=== PATIENT | male | born 1955 | race African-American/Black ===

== ENCOUNTER 2018-05-23 16:21 | Emergency (ER) | payer MEDICARE, MEDICAID ==
[~2018-05-23] VITALS: Ht 188 cm; Wt 79.4 kg
--- NOTE | 2018-05-23 16:27 | NUR ---
PT AMBULATES TO BED 4
[2018-05-23 16:32] VITALS: BP 133/61
--- NOTE | 2018-05-23 16:36 | NUR ---
PT BEDSIDE TRIAGED, REPORT TO HI LEMUS
--- NOTE | 2018-05-23 16:36 | NUR ---
63Y/M BIB SELF C/O R SIDED NECK PAIN SHOOTING TO RT ABD X 1WK; PT STATES HE FEELS ITS MUSCULAR. NO SWELLING WARMTH OR ERYTHEMA, NO EVIDENCE OF INJURY. 8/10 MUSCULAR PAIN ACHING. BED DOWN; BEDRAIL UP X 1; ER MD AWARE AND NOTIIFED OF PT STATUS. HX: CHRONIC COUGH, CIRROHSIS MEDS: INHALER
[2018-05-23] MEDS ORDERED: ASPIRIN 325 MG TAB PO ONE (19:10)
--- NOTE | 2018-05-23 19:15 | NUR ---
X-Ray at bedside.
[2018-05-23 19:52] LABS: BASOPHILS % (AUTO) 0.6 % (0.0-2.0); EOSINOPHILS # (AUTO) 0.1 K/uL (0-0.4); EOSINOPHILS % (AUTO) 2.2 % (0.0-4.0); HEMATOCRIT 41.7 % (36-52); HEMOGLOBIN 13.8 g/dL (12.0-18.0); LYMPHOCYTES # (AUTO) 1.1 K/uL (2.0-11.5); LYMPHOCYTES % (AUTO) 17.7 % (20.5-51.1); MEAN CORPUSCULAR HEMOGLOBIN 30 pg (27-31); MEAN CORPUSCULAR HGB CONC 33 g/dL (33-37); MEAN CORPUSCULAR VOLUME 89.8 fL (80-94); MONOCYTES # (AUTO) 0.6 K/uL (0.8-1.0); MONOCYTES % (AUTO) 9.1 % (1.7-9.3); NEUTROPHILS # (AUTO) 4.3 K/uL (1.8-7.7); NEUTROPHILS % (AUTO) 70.4 % (42.2-75.2); PLATELET COUNT (AUTO) 309 K/uL (140-450); RED BLOOD CELL COUNT(AUTO) 4.64 MIL/uL (4.20-6.10); RED CELL DISTRIBUTION WIDTH 12.3 % (11.6-13.7); WHITE BLOOD COUNT (AUTO) 6.2 K/uL (4.8-10.8)
[2018-05-23 20:04] LABS: APPEARANCE,URINE CLEAR (CLEAR); BILIRUBIN,URINE NEGATIVE (NEGATIVE); BLOOD, URINE NEGATIVE (NEGATIVE); COLOR,URINE YELLOW (YELLOW); LEUKOCYTE ESTERASE ,URINE NEGATIVE (NEGATIVE); NITRITE, URINE NEGATIVE (NEGATIVE); UGLUCOSE NEGATIVE (NEGATIVE)
[2018-05-23 20:07] LABS: PROTHROMBIN TIME 11.2 secs (10.8-13.4)
[2018-05-23 20:10] LABS: ALBUMIN 3.6 g/dL (3.4-5.0); ANION GAP 14.1 (8-16); CARBON DIOXIDE 25.7 mmol/L (21-32); POTASSIUM 3.8 mmol/L (3.5-5.1); TOTAL BILIRUBIN 0.4 mg/dL (0.0-1.0)
--- NOTE | 2018-05-24 00:40 | NUR ---
PT TAKEN TO CT
--- NOTE | 2018-05-24 01:04 | NUR ---
PT RETURN FROM CT
--- NOTE | 2018-05-24 01:14 | NUR ---
Dr. Vela evaluating patient at bedside.
[2018-05-24] MEDS ORDERED: MORPHINE SULFATE 4 MG/ML SYR IVP ONE ×2 (01:15→04:00)
--- NOTE | 2018-05-24 01:41 | NUR ---
IV 18GA RT A/C DONE. IVP MEDS GIVEN-NADR AT THIS TIME
--- NOTE | 2018-05-24 02:52 | NUR ---
PT IN BED RESTING WITH EYES CLOSED. VSS. ER MD AWARE. CONTINUE TO MONITOR.
--- NOTE | 2018-05-24 04:00 | NUR ---
REPORT CALLED TO [facility] ED, NURSE AMY RN. PT CARE TRANSFERING TO DR MIMS. REPORT CALLED TO . PT VSS AT THIS TIME. ER MD AWARE. CONTINUE TO MONITOR.
--- NOTE | 2018-05-24 04:28 | NUR ---
[facility] AT BEDSIDE
--- NOTE | 2018-05-24 04:38 | NUR ---
PT TAKEN BY [facility] TRANSPORT TO [facility] ER
[2018-05-24 04:40] VITALS: BP 131/85
--- NOTE | 2018-05-24 04:40 | NUR ---
Patient to be transferred to [facility]. Is being transferred due to metastatic cancer with compression fracture of the c-spine. Receiving facility has accepting physician and available space. ER physician has signed transfer form. Patient or responsible democrat has agreed to transfer and signed form. Patient belongings inventoried and will be sent with patient. Copy of nursing notes, lab reports, EKG, Physicians Orders and X-rays to be sent with patient. Report called to Johann LEMUS at receiving facility. Transfered via [facility] ambulance service has been called for transfer. Pt transfered with vss.
== END 2018-05-24 04:38 | disposition short-term general hospital (02) ==
LOC: MED 16:21
DX: C34.31 Malignant neoplasm of lower lobe, right bronchus or lung (principal); M48.52XA Collapsed vertebra, not elsewhere classified, cervical region, initial encounter for fracture; K74.60 Unspecified cirrhosis of liver; R94.31 Abnormal electrocardiogram [ECG] [EKG]
CPT/HCPCS: 36415; 70490; 71045; 71250; 74176; 80053; 81003; 83735; 83880; 84484; 85025; 85610; 85730; 93005; 96374; 96376; 99285; J2270; Q0092